=== PATIENT | female | born 1980 ===

== ENCOUNTER 2016-09-05 09:38 | Emergency (ER) | payer SELFPAY ==
[2016-09-05 09:38] VITALS: BMI 34.2
[2016-09-05 09:44] VITALS: RESP 18
--- NOTE | 2016-09-05 10:38 | C.PDOC ---
History Of Present Illness The patient, a 35 y/o female, presents to the ED for evaluation of left hand pain which began after a window fell on her hand this morning. Patient states she is left-hand dominant. She denies change in sensation and has no other complaints at this time. Time Seen by Provider: 09/05/16 09:58 Chief Complaint (Nursing): Upper Extremity Problem/Injury History Per: Patient History/Exam Limitations: no limitations Onset/Duration Of Symptoms: Hrs, Waxing/Waning Current Symptoms Are (Timing): Still Present Quality: "Pain" Additional History Per: Patient Past Medical History Reviewed: Historical Data, Nursing Documentation, Vital Signs Vital Signs: Last Vital Signs Temp 98 F 09/05/16 11:53 Pulse 77 09/05/16 11:53 Resp 18 09/05/16 11:53 BP 108/65 09/05/16 11:53 Pulse Ox 96 09/05/16 11:53 - Medical History PMH: No Chronic Diseases Surgical History: No Surg Hx - [facility] Procedures LOW CERVICAL (02/06/13) 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 Musculoskeletal: Positive for: Hand Pain (left) Neurological: Negative for: Weakness, Numbness Physical Exam - Physical Exam Appears: Non-toxic, No Acute Distress Skin: Warm, Dry Head: Atraumatic, Normacephalic Eye(s): bilateral: Normal Inspection, EOMI Nose: Normal Oral Mucosa: Moist Neck: Supple Chest: Symmetrical Respiratory: No Accessory Muscle Use Extremity: No Normal ROM (limited in left hand secondary to pain ), Tenderness ( mild to left 2nd,3rd,and 4th metacarpals), Capillary Refill (less than 2 seconds ), No Deformity, Swelling (mild to left 2nd,3rd,and 4th metacarpals) Pulses: Left Radial: Normal, Right Radial: Normal Neurological/Psych: Oriented x3, Normal Speech, Normal Cognition, Normal Sensation Gait: Steady ED Course And Treatment O2 Sat by Pulse Oximetry: 98 (on RA) Pulse Ox Interpretation: Normal - CT Scan/US left hand XR Other Rad Studies (CT/US): Interpreted By Me, Read By Radiologist, Radiology Report Reviewed CT/US Interpretation: Accession No. : [id number]. Patient Name / ID : REYNA Parker / [id number]. Exam Date : 09/05/2016 10:21:43 ( Approved ). Study Comment : Sex / Age : F / 35Y. Creator : Socrates Pardo MD. Dictator : Socrates Pardo MD. Manufacturing Plant Controller : Supervisor [employer] : Socrates Pardo MD. Approver2 : Report Date : 09/05/2016 10:34:50. My Comment : . PROCEDURE: Left Hand Radiographs. HISTORY: trauma. COMPARISON: 2013. FINDINGS: BONES: No acute fracture. Evidence of old 5th metacarpal fracture. JOINTS: Normal. No osteoarthritic changes. SOFT TISSUES: Normal. OTHER FINDINGS: None. IMPRESSION: No acute findings related to/accounting for the clinical presentation. No significant interval change compared to the prior examination(s). Progress Note: Left hand XR ordered and reviewed. Patient received Motrin PO. Volar splint applied to left hand by ED splicing technician. On reassessment, patient is resting comfortably, showing no signs of distress, and reports an improvement in her symtoms. Patient is instructed on RICE. She is stable for discharge and is advised to follow up with orthopedic care within 2-5 days for further evaluation. Reassessment Condition: Improved Disposition - Disposition Referrals: Bo Morrison MD [Staff Provider] - Disposition: HOME/ ROUTINE Disposition Time: 10:36 Condition: STABLE Additional Instructions: rest, ice and elevate the area. Vaya a tang mdico o la clnica en 2-5 ruiz sin falta, para mas evaluacin. [employer] los medicamentos gonzález indicado. Volver a la shayy de emergencia en cualquier momento si los sntomas persisten o empeoran. Prescriptions: Naproxen [Naprosyn] 1 tab PO BID PRN #20 tab PRN Reason: Pain Instructions: Contusion in Adults (ED) Print Language: KINYARWANDA - Clinical Impression Clinical Impression: Contusion, hand - PA / COMMERCIAL ESCROW ASSISTANT / Resident Statement MD/DO has reviewed & agrees with the documentation as recorded. - Scribe Statement The provider has reviewed the documentation as recorded by the Scribe (Taylor Mckeon) All medical record entries made by the Scribe were at my direction and personally dictated by me. I have reviewed the chart and agree that the record accurately reflects my personal performance of the history, physical exam, medical decision making, and the department course for this patient. I have also personally directed, reviewed, and agree with the discharge instructions and disposition.
[2016-09-05 11:54] VITALS: BP 108/65; PULSE 77; TEMP 98
[2016-09-06 07:33] VITALS: O2SAT 98
== END 2016-09-05 11:54 | disposition home or self-care (01) ==
LOC: C.ER 09:38
DX: S60.222A Contusion of left hand, initial encounter (principal); W22.8XXA Striking against or struck by other objects, initial encounter; Y93.89 Activity, other specified; Y92.89 Other specified places as the place of occurrence of the external cause

== ENCOUNTER 2017-04-19 19:52 | Emergency (ER) | payer SELFPAY ==
[2017-04-19 19:52] VITALS: BMI 34.2
[2017-04-19] MEDS ORDERED: Amoxicillin-Clav 500-125 mg Tab PO STA (22:06)
--- NOTE | 2017-04-19 22:32 | C.PDOC ---
History Of Present Illness 36 years old female presents to ED with complaints pain to her left nipple that began 2 days ago.Pt reports pain while breast feeding. Patient states she has been breast feeding her 2 years old son who was diagnosed with stomatitis and unsure if child zednejas bitten her left nipple. Denies nipple discharge, redness to area, fever, and skin changes in breast. Time Seen by Provider: 04/19/17 21:28 Chief Complaint (Nursing): Breast Problem History Per: Patient History/Exam Limitations: no limitations Onset/Duration Of Symptoms: Days (2) Current Symptoms Are (Timing): Still Present Recent travel outside of the [place]: No Past Medical History Reviewed: Historical Data, Nursing Documentation, Vital Signs Vital Signs: Last Vital Signs Temp 98.2 F 04/19/17 22:44 Pulse 82 04/19/17 22:44 Resp 18 04/19/17 22:44 BP 124/68 04/19/17 22:44 Pulse Ox 98 04/19/17 23:48 - Medical History PMH: No Chronic Diseases - [facility] Procedures LOW CERVICAL (02/06/13) 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 Negative for: Rash, Lesions, Bruising Neurological: Negative for: Weakness, Numbness Psych: Negative for: Depression, Suicidal ideation Physical Exam - Physical Exam Appears: Well, Non-toxic, Other (Awake and alert) Skin: Other (Small pustule to left nipple area with minimal localized tenderness ; no purulent drainage or erythema remainder of b/l breast normal) Eye(s): bilateral: Normal Inspection Oral Mucosa: Moist Chest: Symmetrical, No Tenderness Cardiovascular: Rhythm Regular Respiratory: No Rales, No Wheezing Neurological/Psych: Oriented x3, Normal Speech, Normal Cognition ED Course And Treatment O2 Sat by Pulse Oximetry: 98 (Room air) Pulse Ox Interpretation: Normal Progress Note: Administered Motrin and Amoxicillin. Patient given instruxtions in montenegrin by Annita LUTZ regarding treatment plan and discharge instructions. Disposition Counseled Patient/Family Regarding: Diagnosis, Need For Followup, Rx Given - Disposition Referrals: PMD, Private PMD [Other] Disposition: HOME/ ROUTINE Disposition Time: 22:30 Condition: STABLE Additional Instructions: Please follow up with PMD Apply warm compress to area May use bacitracin as needed D/c breast feeding while on abx Return to ER if worse Prescriptions: Amoxicillin/Clavulanate [Augmentin 500 MG-125 MG] 1 tab PO TID #21 tab Ibuprofen [Motrin] 600 mg PO Q6H #20 tab Forms: Gen Discharge Inst Hebrew, [facility] (Serbian) Print Language: MONGOLIAN - Clinical Impression Clinical Impression: Pain of breast, Skin pustule - PA / COOK HELPER / Resident Statement MD/DO has reviewed & agrees with the documentation as recorded. - Scribe Statement The provider has reviewed the documentation as recorded by the Deanna Spring All medical record entries made by the Deanna were at my direction and personally dictated by me. I have reviewed the chart and agree that the record accurately reflects my personal performance of the history, physical exam, medical decision making, and the department course for this patient. I have also personally directed, reviewed, and agree with the discharge instructions and disposition.
[2017-04-19] MEDS ORDERED: Amoxicillin-Clav 500-125 mg Tab PO ONE (22:33)
[2017-04-19 22:45] VITALS: BP 124/68; PULSE 82; RESP 18; TEMP 98.2
[2017-04-19 23:42] VITALS: O2SAT 98
== END 2017-04-19 22:44 | disposition home or self-care (01) ==
LOC: C.ER 19:52
DX: N64.4 Mastodynia (principal); L08.9 Local infection of the skin and subcutaneous tissue, unspecified

== ENCOUNTER 2018-04-27 10:23 | Outpatient (CLI) | payer OTHER | END 2018-04-27 10:24 | disposition home or self-care (01) | LOC: C.MAMMO 10:24 | DX: N60.29 Fibroadenosis of unspecified breast (principal) ==

== ENCOUNTER 2018-04-27 10:34 | Outpatient (CLI) | payer OTHER | END 2018-04-27 10:35 | disposition home or self-care (01) | LOC: C.RADIC 10:34 ==